=== PATIENT | male | born 1955 | race Caucasian/White ===

== ENCOUNTER 2020-03-30 01:54 | Observation (INO) ==
[2020-03-30] MEDS ORDERED: ALUM/MAG/SIMETH/LIDO VISC 1:1 30 ML BOTTLE PO STA (02:09)
[2020-03-30] MEDS ORDERED: HYDROmorphone 2 MG/1 ML VIAL IV STA (02:09)
[2020-03-30] MEDS ORDERED: ONDANSETRON 4 MG/2 ML VIAL IV STA (02:09)
[2020-03-30] MEDS ORDERED: PANTOPRAZOLE 40 MG VIAL IV STA (02:09)
[2020-03-30] MEDS ORDERED: SODIUM CHLORIDE 0.9% 1,000 ML IV STA (02:09)
[2020-03-30 02:32] LABS: Basophils # 0.1 10*3/uL (0.0-0.2); Basophils % 0.5 % (0.0-0.8); Eosinophils # 0.1 10*3/uL (0.0-0.87); Eosinophils % 0.6 % (0.00-10.9); Hematocrit 47.7 VOL% (42.0-52.0); Hemoglobin 16.2 GM/DL (14.0-18.0); Immature Granulocytes % 0.6 %; Immature Granulocytes Absolute 0.07 #; Lymphocytes # 1.1 10*3/uL (1.4-4.0); Lymphocytes % 8.5 % (21.2-54.2); Mean Corpuscular Volume 87.4 FL (87-102); Mean Platelet Volume 11.3 FL (9.6-12.0); Monocytes % 5.5 % (1.7-12.7); Neutrophils % 84.3 % (38.7-73.9); Platelet Count 228 T/CUMM (130-400); Red Blood Count 5.46 MC/CUMM (3.8-5.5); Red Cell Distribution Width 12.4 % (9.3-17.3); White Blood Count 12.7 T/CUMM (4-12)
[2020-03-30 03:00] LABS: Albumin 4.4 G/DL (3.4-5.0); Bilirubin,Total 1.1 MG/DL (0.2-1.0); Calcium 8.9 MG/DL (8.5-10.1); Lactic Acid 1.8 MMOL/L (0.4-2.0); Osmolality,Calculated 285.1 MOS/KG (273-304); Potassium 3.6 MMOL/L (3.5-5.1); Total Protein 7.6 G/DL (6.4-8.3)
[2020-03-30 04:30] LABS: Bacteria,Urine Occasional /HPF (Few); Bilirubin,Urine Negative (Negative); Blood, Urine Negative (Negative); Glucose,Urine (UA) Negative (Negative); Ketones,Urine 80 mg/dL (Negative); Mucus,Urine Many /LPF (Occasional); Nitrite,Urine Negative (Negative); Protein,Urine Negative; RBC,Urine 3 /HPF (0-4); Urine Appearance CLEAR (Clear); Urine Color Yellow (Yellow); Urine Specific Gravity 1.019 (1.001-1.035); Urine Urobilinogen < 2.0 EU/DL (0.2-1.0)
[2020-03-30] MEDS ORDERED: ONDANSETRON 4 MG/2 ML VIAL IV PRN ×2 (04:35→11:36)
[2020-03-30] MEDS ORDERED: HYDROmorphone 2 MG/1 ML VIAL IV PRN ×2 (04:35→11:36)
[2020-03-30] MEDS: SODIUM CHLORIDE 0.9% 1,000 ML IV SCH ×2 (05:22→14:22)
[2020-03-30] MEDS: PIPERACILLIN/TAZOBACTAM 3,375 MG in SODIUM CHLORIDE 0.9% 100 ML IV SCH ×3 (05:46→20:44)
[2020-03-30] MEDS ORDERED: FAMOTIDINE 20 MG TABLET PO ONE (07:06)
[2020-03-30] MEDS ORDERED: DIAZEPAM 5 MG TABLET PO ONE (07:06)
[2020-03-30] MEDS ORDERED: GABAPENTIN 400 MG CAPSULE PO ONE (07:06)
[2020-03-30] MEDS ORDERED: ACETAMINOPHEN 500 MG TABLET PO ONE (07:06)
[2020-03-30] MEDS ORDERED: fentaNYL 100 MCG/2 ML VIAL ONE ×2 (08:45→09:59)
[2020-03-30] MEDS ORDERED: SEVOFLURANE 1 UNIT/15 MINUTE INH ONE ×3 (08:45→09:38)
[2020-03-30] MEDS ORDERED: LIDOCAINE 2% 5 ML VIAL ONE (08:45)
[2020-03-30] MEDS ORDERED: MIDAZOLAM 2 MG/2 ML VIAL ONE (08:46)
[2020-03-30] MEDS ORDERED: LIDOCAINE 1%/EPI INJ 20 ML VIAL ONE (08:54)
[2020-03-30] MEDS ORDERED: BUPIVACAINE MPF 0.25% 30 ML VIAL ONE (08:54)
[2020-03-30] MEDS ORDERED: TISSUE ADHESIVE 1 EACH APPLICATOR TOP ONE (08:54)
[2020-03-30] MEDS ORDERED: SUCCINYLCHOLINE 200 MG/10 ML VIAL ONE (09:37)
[2020-03-30] MEDS ORDERED: propofoL 200 MG/20 ML VIAL IV ONE (09:37)
[2020-03-30] MEDS ORDERED: ONDANSETRON 4 MG/2 ML VIAL ONE (09:38)
[2020-03-30] MEDS ORDERED: ROCURONIUM 50 MG/5 ML VIAL IV ONE (09:38)
[2020-03-30] MEDS ORDERED: GLYCOPYRROLATE 0.4 MG/2 ML VIAL ONE (10:10)
[2020-03-30] MEDS ORDERED: MEPERIDINE 25 MG/1 ML VIAL ONE (11:22)
[2020-03-30] MEDS ORDERED: LORazepam 2 MG/1 ML VIAL ONE (11:35)
[2020-03-30] MEDS ORDERED: MEPERIDINE 25 MG/1 ML VIAL IV PRN (11:36)
[2020-03-30] MEDS ORDERED: NEOSTIGMINE 10 MG/10 ML VIAL ONE (11:38)
[2020-03-30] MEDS: PANTOPRAZOLE 40 MG VIAL IV SCH (14:22)
[2020-03-30] MEDS: ACETAMINOPHEN 325 MG TABLET PO PRN (20:41)
[2020-03-30] MEDS: ENOXAPARIN 40 MG/0.4 ML SYRINGE SUBCUT SCH (22:30)
[2020-03-31] MEDS: PIPERACILLIN/TAZOBACTAM 3,375 MG in SODIUM CHLORIDE 0.9% 100 ML IV SCH ×3 (04:11→21:32)
[2020-03-31] MEDS: ACETAMINOPHEN 325 MG TABLET PO PRN ×2 (04:16→15:01)
[2020-03-31 04:29] LABS: Basophils # 0.1 10*3/uL (0.0-0.2); Basophils % 0.5 % (0.0-0.8); Eosinophils # 0.1 10*3/uL (0.0-0.87); Eosinophils % 1.2 % (0.00-10.9); Hemoglobin 13.9 GM/DL (14.0-18.0); Immature Granulocytes % 0.3 %; Immature Granulocytes Absolute 0.03 #; Lymphocytes % 20.7 % (21.2-54.2); Mean Corpuscular HGB Conc 33.1 GM/DL (32-36); Mean Corpuscular Volume 89.6 FL (87-102); Mean Platelet Volume 11.5 FL (9.6-12.0); Monocytes % 10.2 % (1.7-12.7); Neutrophils % 67.1 % (38.7-73.9); Platelet Count 165 T/CUMM (130-400); Red Blood Count 4.69 MC/CUMM (3.8-5.5); Red Cell Distribution Width 12.7 % (9.3-17.3); White Blood Count 9.9 T/CUMM (4-12)
[2020-03-31 05:22] LABS: Albumin 3.3 G/DL (3.4-5.0); Bilirubin,Total 1.8 MG/DL (0.2-1.0); Calcium 8.1 MG/DL (8.5-10.1); Osmolality,Calculated 280.3 MOS/KG (273-304); Potassium 3.5 MMOL/L (3.5-5.1); Total Protein 6.4 G/DL (6.4-8.3)
[2020-03-31] MEDS ORDERED: TAMSULOSIN 0.4 MG CAPSULE PO SCH (09:00)
[2020-03-31 09:18] LABS: Albumin 3.4 G/DL (3.4-5.0); Bilirubin,Total 1.5 MG/DL (0.2-1.0); Osmolality,Calculated 277.4 MOS/KG (273-304); Potassium 3.6 MMOL/L (3.5-5.1); Total Protein 6.7 G/DL (6.4-8.3)
[2020-03-31] MEDS: PANTOPRAZOLE 40 MG VIAL IV SCH (10:20)
[2020-03-31 12:40] LABS: Bilirubin,Urine Negative (Negative); Blood, Urine Moderate mg/dL (Negative); Glucose,Urine (UA) Negative (Negative); Ketones,Urine 5 mg/dL (Negative); Mucus,Urine Occasional /LPF (Occasional); Nitrite,Urine Negative (Negative); Protein,Urine Negative; RBC,Urine 44 /HPF (0-4); Urine Appearance CLEAR (Clear); Urine Color Yellow (Yellow); Urine Specific Gravity 1.017 (1.001-1.035); Urine Urobilinogen < 2.0 EU/DL (0.2-1.0); WBC,Urine 1 /HPF (0-6)
[2020-03-31] MEDS ORDERED: POLYETHYLENE GLYCOL POWDER 17 GM PACK PO PRN (15:50)
[2020-03-31] MEDS ORDERED: BISACODYL 5 MG TABLET PO PRN (15:50)
[2020-03-31] MEDS: SODIUM CHLORIDE 0.9% 1,000 ML IV SCH (16:03)
[2020-03-31] MEDS: ENOXAPARIN 40 MG/0.4 ML SYRINGE SUBCUT SCH (21:32)
[2020-03-31] MEDS: TAMSULOSIN 0.4 MG CAPSULE PO SCH (21:33)
[2020-04-01] MEDS: PIPERACILLIN/TAZOBACTAM 3,375 MG in SODIUM CHLORIDE 0.9% 100 ML IV SCH ×2 (05:28→13:00)
[2020-04-01] MEDS: TAMSULOSIN 0.4 MG CAPSULE PO SCH (10:08)
[2020-04-01] MEDS: PANTOPRAZOLE 40 MG VIAL IV SCH (10:09)
[2020-04-01 11:50] VITALS: BP 129/65
== END 2020-04-01 15:12 | disposition home or self-care (01) ==
LOC: N.ED 01:54 → N.EDINP 01:54 → N.3E 04:26
PROVIDERS: ADMIT Student in an Organized Health Care Education/Training Program; ATTEND Student in an Organized Health Care Education/Training Program
PROC: LAPCHOL (2020-03-30 09:20)